=== PATIENT | female | born 2000 | race Caucasian/White ===

== ENCOUNTER 2024-03-13 08:39 | Emergency (ER) | payer SELFPAY ==
--- OUTSIDE RECORDS SUMMARY | 2024-03-13 08:43 | XMS REPORT | Continuity of Care Document ---
Author Name Unknown Address [address] [facility] [address] Eduardo. [address] th[address] Address [address] [facility] [address] Edu[address] [place] [address] Care Team Providers Care Reel System Operator Name Role Phone BHAVANI LARA Attending Clinician Unavailab le Payers Payer Name Policy Type Policy Number Effective Date Expirati on Date Source [employer] [place] [id number] 2019 00:00:00 2020 00:00:00 [employer] [id number] 2019 00:00:00 Allergies, Adverse Reactions, Alerts Allergy Name Allergy Type Status Severity Reaction(s) Onset Date Inactive Date Treating Clinician Comments Source NO KNOWN ALLERGIE S Drug Class Active [facility] Encounters Start Date/Time End Date/Time Encounter Type Admission Type Attending Clinicians Care Facility Care Department Encounter ID Source 2020-09-09 13:45:00 2020-09-09 13:45:00 Outpatient BHAVANI BUSTILLOS [facility] [id number] [facility] 2020-09-09 13:45:00 2020-09-09 13:45:00 Outpatient BHAVANI BUSTILLOS [facility] [id number] [facility]
[2024-03-13] MEDS ORDERED: DIAZEPAM 2 MG TABLET ONE (09:33)
--- NOTE | 2024-03-13 11:02 | EDPHYS ---
Physician Documentation [facility] Name: Tristan Ferrer Age: 23 yrs Sex: Female : 2000 Arrival Date: 03/13/2024 Time: 08:39 Bed 8 Private MD: ED Physician Jeancarlos Kellogg HPI: 03/13 09:55 This 23 yrs old Female presents to ER via Ambulatory with complaints of Anxiety, rn Nausea/Vomiting. 09:55 The patient presents to the emergency department with nausea. Onset: The rn symptoms/episode began/occurred yesterday. Possible causes: anxiety. The symptoms are aggravated by nothing. The symptoms are alleviated by nothing. Severity of symptoms: At their worst the symptoms were moderate in the emergency department the symptoms are unchanged. The patient has experienced similar episodes in the past. The patient has not recently seen a physician. Pt reports anxiety, began a few days ago, usually able to get through it on her own but unable to help herself this time. Smoke marijuana daily but no acute changes. Reports has had several anxiety episodes in the past, this feels similar to it just worse. Denies other drug use. Reports tingling to face and extremities. Reports palpitations. Reports shortness of breath and is tearful. No suicidal ideations or homicidal ideation.. Historical: - Allergies: 09:04 No Known Allergies; ss - Home Meds: 09:04 None [Active]; ss - PMHx: 09:04 None; ss - PSHx: 09:04 None; ss - Immunization history:: Adult Immunizations up to date. - Infectious Disease History:: Denies. - Social history:: Smoking status: Patient denies any tobacco usage or history of. - Family history:: not pertinent. - Hospitalizations: : No recent hospitalization is reported. ROS: 09:55 Constitutional: Negative for fever, chills, and weight loss, Neck: Negative for injury, rn pain, and swelling, Cardiovascular: Positive for palpitations Respiratory: Positive for rapid breathing Abdomen/GI: Positive for nausea Back: Negative for injury and pain, : Negative for injury, bleeding, discharge, and swelling, MS/Extremity: Negative for injury and deformity, Skin: Negative for injury, rash, and discoloration, Neuro: Positive for numbness and tingling to face and arms. Negative for seizure. No focal weakness Exam: 09:55 Constitutional: Thin female, tearful Head/Face: Normocephalic, atraumatic. ENT: rn Moist mucous membranes, no stridor Neck: No meningismus Cardiovascular: Tachycardic, regular. Respiratory: Mild tachypnea, able to slow down with coaching Abdomen/GI: Soft, nontender MS/ Extremity: Pulses equal, no cyanosis. Neurovascular intact. Full, normal range of motion. Equal circumference. Neuro: Awake and alert, GCS 15 10:33 ECG was reviewed by the Attending Physician. rn Vital Signs: 08:58 BP 133 / 89; Pulse 118; Resp 22; Temp 98(O); Pulse Ox 100% on R/A; Weight 38.56 kg; ss Height 5 ft. 4 in. ; Pain 0/10; 10:05 BP 107 / 70; Pulse 110; Resp 24 S; Pulse Ox 99% on R/A; aa5 10:41 BP 109 / 62; Pulse 80; Resp 18 S; Pulse Ox 100% on R/A; aa5 11:10 BP 110 / 71; Pulse 84; Resp 17; Pulse Ox 99% on R/A; rs5 08:58 Body Mass Index 14.59 (38.56 kg, 162.56 cm) ss 08:58 Pain Scale: Adult ss MDM: 08:43 Patient medically screened. rn 11:00 Differential diagnosis: Anxiety, hyperventilation. Data reviewed: vital signs, nurses rn notes, EKG, and as a result, I will discharge patient. Counseling: I had a detailed discussion with the patient and/or guardian regarding the historical points, exam findings, and any diagnostic results supporting the discharge/admit diagnosis, the need for outpatient follow up, to return to the emergency department if symptoms worsen or persist or if there are any questions or concerns that arise at home. Special discussion: I discussed with the patient/guardian in detail that at this point there is no indication for admission to the hospital. It is understood, however, that if the symptoms persist or worsen the patient needs to return immediately for re-evaluation. Based on the history and exam findings, there is no indication for further emergent testing or inpatient evaluation. I discussed with the patient/guardian the need to see the psychiatrist for further evaluation of the symptoms. 03/13 09:14 Order name: EKG; Complete Time: 09:14 rn 03/13 09:14 Order name: EKG - Nurse/Tech; Complete Time: 09:48 rn EC:33 Rate is 91 beats/min. Rhythm is regular. QRS [place] is Normal. [place] interval is normal. QRS rn interval is normal. QT interval is normal. No Q waves. T waves are Normal. No ST changes noted. Clinical impression: Normal ECG. Interpreted by me. Reviewed by me. Administered Medications: 09:40 Drug: Diazepam PO 2 mg PO once Route: PO; aa5 11:10 Follow up: Response: No adverse reaction; Anxiety decreased rs5 Disposition Summary: 03/13/24 11:01 Discharge Ordered Notes: Location: Home rn Problem: an ongoing problem rn Symptoms: have improved rn Condition: Stable rn Diagnosis - Generalized anxiety disorder rn Followup: rn - With: Bronson Allen MD - When: As needed - Reason: Recheck today's complaints, Re-evaluation by your physician Discharge Instructions: - Discharge Summary Sheet rn - Panic Attack rn - Generalized Anxiety Disorder, Adult rn - Managing Anxiety, Adult rn Forms: - Medication Reconciliation Form rn - Antibiotic edge burnisher - Prescription Opioid Use rn - Patient Portal Instructions rn - Leadership Thank You Letter rn Signatures: Jeancarlos Kellogg MD MD rn Calderon, Audri RN RN aa5 Sandra Adorno RN RN Kenneth New RN RN rs5
--- NOTE | 2024-03-13 11:02 | ER ---
Nurse's Notes [facility] Name: Tristan Ferrer Age: 23 yrs Sex: Female : 2000 Arrival Date: 03/13/2024 Time: 08:39 Bed 8 Private MD: Diagnosis: Generalized anxiety disorder Presentation: 03/13 08:58 Chief complaint: Patient states: Anxiety for the past few weeks with N/V, much worse ss yesterday after taking a "hit of cannabis" yesterday. Pt reports she is a chronic user of cannabis and is unsure whether or not this could be and adverse reaction from chronic use, or something else. Coronavirus screen: Client denies travel out of the [place] in the last 14 days. Ebola Screen: Patient denies exposure to infectious person. Patient denies travel to an Ebola-affected area in the 21 days before illness onset. Initial Sepsis Screen: Does the patient meet any 2 criteria? No. Patient's initial sepsis screen is negative. Does the patient have a suspected source of infection? No. Patient's initial sepsis screen is negative. Risk Assessment: Do you want to hurt yourself or someone else? Patient reports no desire to harm self or others. Onset of symptoms is unknown. 08:58 Method Of Arrival: Ambulatory ss 08:58 Acuity: JOHN 3 ss Triage Assessment: 09:04 General: Appears distressed, Behavior is anxious, crying. Neuro: Level of Consciousness ss is awake, alert, obeys commands, Oriented to person, place, time, situation. Respiratory: Respiratory effort is even. GI: Reports nausea, vomiting. : No signs and/or symptoms were reported regarding the genitourinary system. Derm: Skin is intact, is healthy with good turgor, Skin is dry. Historical: - Allergies: 09:04 No Known Allergies; ss - Home Meds: 09:04 None [Active]; ss - PMHx: 09:04 None; ss - PSHx: 09:04 None; ss - Immunization history:: Adult Immunizations up to date. - Infectious Disease History:: Denies. - Social history:: Smoking status: Patient denies any tobacco usage or history of. - Family history:: not pertinent. - Hospitalizations: : No recent hospitalization is reported. Screenin:00 [facility] ED Fall Risk Assessment (Adult) History of falling in the last 3 months, rs5 including since admission No falls in past 3 months (0 pts) Confusion or Disorientation No (0 pts) Intoxicated or Sedated No (0 pts) Impaired Gait No (0 pts) Mobility Assist Device Used No (0 pt) Altered Elimination No (0 pt) Score/Fall Risk Level 0 - 2 = Low Risk Oriented to surroundings, Maintained a safe environment. Abuse screen: Denies threats or abuse. Nutritional screening: No deficits noted. Tuberculosis screening: No symptoms or risk factors identified. Assessment: 08:52 General: Appears distressed, uncomfortable, Behavior is cooperative, anxious. Pain: rs5 Denies pain. Neuro: Level of Consciousness is awake, alert, obeys commands, Oriented to person, place, time, situation. Cardiovascular: Rhythm is sinus tachycardia. Respiratory: Airway is patent Respiratory effort is even, unlabored, Respiratory pattern is regular, symmetrical. GI: Abdomen is round non-distended, Abd is soft and non tender X 4 quads. Reports nausea, vomiting. : No signs and/or symptoms were reported regarding the genitourinary system. EENT: No signs and/or symptoms were reported regarding the EENT system. Derm: Skin is intact, Skin is pink, warm \\T\\ dry. Musculoskeletal: Range of motion: intact in all extremities. 09:20 Reassessment: Awaiting diazepam from pharmacy, current diazepam in [facility] is . . aa5 09:48 Neuro: Level of Consciousness is awake, alert, obeys commands, Oriented to person, aa5 place, time, situation. Respiratory: Airway is patent Respiratory effort is even, unlabored, Respiratory pattern is regular, symmetrical. Derm: Skin is dry, Skin is normal, Skin temperature is warm. 09:48 General: Appears uncomfortable, Behavior is anxious, restless. aa5 10:17 Reassessment: Patient is alert, oriented x 3, equal unlabored respirations, skin aa5 warm/dry/pink. Pt states "I do feel a little bit better" . 11:12 Reassessment: Patient is alert, oriented x 3, equal unlabored respirations, skin aa5 warm/dry/pink. Patient states feeling better. Patient states symptoms have improved. Vital Signs: 08:58 BP 133 / 89; Pulse 118; Resp 22; Temp 98(O); Pulse Ox 100% on R/A; Weight 38.56 kg; ss Height 5 ft. 4 in. ; Pain 0/10; 10:05 BP 107 / 70; Pulse 110; Resp 24 S; Pulse Ox 99% on R/A; aa5 10:41 BP 109 / 62; Pulse 80; Resp 18 S; Pulse Ox 100% on R/A; aa5 11:10 BP 110 / 71; Pulse 84; Resp 17; Pulse Ox 99% on R/A; rs5 08:58 Body Mass Index 14.59 (38.56 kg, 162.56 cm) ss 08:58 Pain Scale: Adult ss ED Course: 08:42 Patient arrived in ED. mg5 08:43 Jeancarlos Kellogg MD is Attending Physician. rn 08:59 Kenneth Catalan, PRIETO is Primary Nurse. rs5 09:00 Patient has correct armband on for positive identification. Placed in gown. Bed in low rs5 position. Call light in reach. Side rails up X2. 09:00 No provider procedures requiring assistance completed. rs5 09:04 Triage completed. ss 09:04 Arm band placed on right wrist. ss 09:44 EKG done, by ED staff, reviewed by Jeancarlos Kellogg MD. aa5 11:01 Bronson Allen MD is Referral Physician. rn 11:10 Provided Education on: discharge instructions . rs5 11:12 Patient did not have IV access during this emergency room visit. aa5 Administered Medications: 09:40 Drug: Diazepam PO 2 mg PO once Route: PO; aa5 11:10 Follow up: Response: No adverse reaction; Anxiety decreased rs5 Medication: 11:12 VIS not applicable for this client. aa5 Outcome: 11:01 Discharge ordered by . rn 11:12 Discharged to home ambulatory, with significant other, aa5 11:12 Condition: improved 11:12 Discharge instructions given to patient, Instructed on discharge instructions, follow up and referral plans. Demonstrated understanding of instructions, follow-up care, 11:13 Patient left the ED. aa5 Signatures: Jeancarlos Kellogg MD MD rn Calderon, Audri, PRIETO RN aa5 Sandra Adorno RN RN Kenneth Catalan, PRIETO RN rs5 Iram Gipson mg5
[2024-03-13 22:47] VITALS: TEMP 98
[2024-03-13 22:50] VITALS: BP 109/62; O2SAT 100
--- NOTE | 2024-03-14 16:37 | EKG ---
Test Date: 2024-03-13 Test Time: 09:43:30 Home Energy Consultant Supervisor: ELIAZAR MEASUREMENT RESULTS: Intervals: Rate: 91 NC: 128 QRSD: 70 QT: 362 QTc: 445 [place]: P: 70 NC: 128 QRS: 80 T: 19 INTERPRETIVE STATEMENTS: Normal sinus rhythm Normal ECG No previous ECG available for comparison Electronically Signed On 03-14-24 16:33:02 CDT by Akira Cruz
== END 2024-03-13 11:13 | disposition home or self-care (01) ==
LOC: ER 08:39
DX: F41.1 Generalized anxiety disorder (principal); R11.2 Nausea with vomiting, unspecified
CPT/HCPCS: 93005; 99283